=== PATIENT | female | born 1955 | race African-American/Black ===

== ENCOUNTER 2019-05-28 15:54 | Emergency (ER) | payer MEDICARE, MEDICAID ==
[~2019-05-28] VITALS: Ht 177.8 cm; Wt 77.0 kg
[2019-05-28 18:38] VITALS: BP 141/84
== END 2019-05-29 01:55 | disposition left against medical advice (07) ==
LOC: ER 15:54
DX: Z53.21 Procedure and treatment not carried out due to patient leaving prior to being seen by health care provider (principal)

== ENCOUNTER 2020-06-08 10:25 | Inpatient (IN) | payer OTHER, MEDICAID ==
[~2020-06-08] VITALS: Ht 165.1 cm; Wt 65.8 kg
[2020-06-08] MEDS ORDERED: SODIUM CHLORIDE 0.9% 1,000 ML IV ONE (11:15)
[2020-06-08 11:29] LABS: BASOPHILS % 0.9 % (0.0-2.0); EOSINOPHILS % 0.8 % (0.0-5.0); HEMATOCRIT. 40.7 % (36.0-48.0); HEMOGLOBIN. 13.4 g/dL (12.0-16.0); LYMPHOCYTES % 13.2 % (20.0-50.0); MEAN CORPUSCULAR HEMOGLOBIN 27.5 pg (28.0-32.0); MEAN CORPUSCULAR VOLUME 83.5 fL (81.0-99.0); MEAN PLATELET VOLUME 9.1 fl (7.4-10.4); MONOCYTES % 14.3 % (2.0-8.0); NEUTROPHILS % 70.8 % (40.0-76.0); PLATELET 247 x1000/uL (130-400); RED BLOOD CELL COUNT 4.87 mill/uL (4.2-5.4); RED CELL DISTRIBUTION WIDTH 16.5 % (11.6-14.6)
[2020-06-08 11:36] LABS: CHLORIDE 94 mEq/L (98-107)
[2020-06-08 11:45] LABS: CREATINE KINASE 85 IU/L (26-192)
[2020-06-08] MEDS ORDERED: VANCOMYCIN 1 G PREMIX 200 ML IV ONE (12:00)
[2020-06-08] MEDS ORDERED: LEVOFLOXACIN 750MG PREMIX 150 ML IV ONE (12:00)
[2020-06-08] MEDS ORDERED: MORPHINE SULFATE 2 MG/ML CPJ (NOT FOR IM USE) IV ONE (12:00)
[2020-06-08] MEDS ORDERED: DEXAMETHASONE 10 MG/ML VIAL IV ONE (12:15)
[2020-06-08 12:39] LABS: INR 1.1; PROTHROMBIN TIME 12.1 sec (9.6-11.0)
[2020-06-08 12:51] LABS: CLARITY URINE TURBID (CLEAR); COLOR URINE RED (YELLOW); KETONES URINE NEGATIVE (NEGATIVE); LEUKOCYTE ESTERASE URINE 3+ (NEGATIVE); NITRITE URINE NEGATIVE (NEGATIVE); OCCULT BLOOD URINE 3+ (NEGATIVE); PROTEIN URINE 3+ (NEGATIVE); SPECIFIC GRAVITY URINE 1.024 (1.005-1.030)
[2020-06-08] MEDS ORDERED: CEFTRIAXONE 1 G PREMIX 50 ML IV SCH (15:00)
[2020-06-08] MEDS ORDERED: ACETAMINOPHEN 650MG SUPP PR PRN (15:00)
[2020-06-08] MEDS ORDERED: GUAIFENESIN 200MG/10ML SUGAR FREE UDC PO PRN (15:00)
[2020-06-08] MEDS ORDERED: CLONIDINE 0.1MG TABLET PO PRN (15:00)
[2020-06-08] MEDS ORDERED: DOCUSATE SODIUM 100MG CAPSULE PO PRN (15:00)
[2020-06-08] MEDS ORDERED: ACETAMINOPHEN 325MG TABLET PO PRN (15:00)
[2020-06-08] MEDS ORDERED: MAGNESIUM/ALUMINUM HYDROXIDE/SIMETHICONE 30ML UDC PO PRN (15:00)
[2020-06-08] MEDS ORDERED: ONDANSETRON HCL 4MG/2ML INJ IV PRN (15:00)
[2020-06-08] MEDS ORDERED: DIPHENHYDRAMINE 50MG/ML VIAL IV PRN (15:00)
[2020-06-08] MEDS ORDERED: HYDROCODONE/ACETAMINOPHEN 5/325MG TABLET PO PRN (15:00)
[2020-06-08] MEDS ORDERED: NA PHOS,M-B/NA PHOS,DI-BA ENEMA 118ML PR PRN (15:00)
[2020-06-08] MEDS: MORPHINE SULFATE 2 MG/ML CPJ (NOT FOR IM USE) IV PRN (15:17)
[2020-06-08 16:30] VITALS: BP 130/85
[2020-06-08] MEDS ORDERED: ENOXAPARIN 40MG/0.4ML SYR SUBCUT SCH (17:00)
[2020-06-08] MEDS ORDERED: AZITHROMYCIN 500 MG in DEXT 5% WATER 250 ML IV SCH (17:00)
[2020-06-08 17:01] LABS: BG BASE EXCESS 2.3 mmol/L (-2.0-2.0); BG CARBOXYHEMOGLOBIN 0.7 % (0.5-1.5); BG DEOXYHEMOGLOBIN 6.7 % (0.0-5.0); BG FRACTION INSPIRED OXYGEN 21; BG HCO3 ACT 26.7 mmol/L (22.0-26.0); BG METHEMOGLOBIN 0.1 % (0.0-1.5); BG OXYGEN SATURATION 93.2 % (92.0-98.5); BG OXYHEMOGLOBIN 92.5 % (94.0-97.0); BG PCO2 40.6 mmHg (35.0-45.0); BG PH 7.436 (7.350-7.450); BG PO2 64.9 mmHg (75.0-100.0); BG SAMPLE SITE RIGHT BRACHIAL; BG TOTAL HEMOGLOBIN 12.8 g/dL (12.0-18.0); BG VENT MODE ROOM AIR
[2020-06-08] MEDS: FAMOTIDINE 20MG/2ML VIAL IV SCH (17:24)
[2020-06-08] MEDS ORDERED: ROSU20TA2 PO (17:33)
[2020-06-08] MEDS ORDERED: FAMO20TA8 PO (17:33)
[2020-06-08] MEDS ORDERED: POTA20TA82 PO (17:33)
[2020-06-08] MEDS ORDERED: FURO40TA5 PO (17:33)
[2020-06-08] MEDS ORDERED: ALBUTEROL 6.7GM HFA INHALER ORI SCH (18:00)
[2020-06-08 20:33] VITALS: BP 120/75
[2020-06-08 20:34] VITALS: BP 148/75
[2020-06-08] MEDS: AZITHROMYCIN 500 MG in DEXT 5% WATER 250 ML IV SCH (21:04)
[2020-06-08] MEDS ORDERED: IOHEXOL-300 100 ML BOTTLE ONE (22:58)
[2020-06-08] MEDS: CEFTRIAXONE 1,000 MG in DEXTROSE 5% WATER 50 ML IV SCH (23:38)
[2020-06-09 00:48] LABS: CREATINE KINASE 42 IU/L (26-192)
[2020-06-09 00:49] LABS: CREATINE KINASE MB FRACTION 1.8 ng/mL (0.5-3.6)
[2020-06-09 04:43] VITALS: BP 120/80
[2020-06-09 06:44] LABS: BASOPHILS % 0.2 % (0.0-2.0); HEMATOCRIT. 35.4 % (36.0-48.0); HEMOGLOBIN. 11.7 g/dL (12.0-16.0); LYMPHOCYTES % 17.9 % (20.0-50.0); MEAN PLATELET VOLUME 8.5 fl (7.4-10.4); MONOCYTES % 10.8 % (2.0-8.0); NEUTROPHILS % 71.1 % (40.0-76.0); PLATELET 190 x1000/uL (130-400); RED BLOOD CELL COUNT 4.17 mill/uL (4.2-5.4); RED CELL DISTRIBUTION WIDTH 16.7 % (11.6-14.6)
[2020-06-09 07:11] LABS: CHLORIDE 96 mEq/L (98-107)
[2020-06-09 07:32] LABS: LDL CHOLESTEROL 79 mg/dL (5-100)
[2020-06-09 07:33] LABS: CREATINE KINASE 39 IU/L (26-192); CREATINE KINASE MB FRACTION 1.8 ng/mL (0.5-3.6); T4 FREE 1.59 ng/dL (0.76-1.46)
[2020-06-09 07:34] LABS: HDL CHOLESTEROL 61 mg/dL (40-59)
[2020-06-09 07:59] VITALS: BP 118/77
[2020-06-09] MEDS: DEXAMETHASONE 10 MG/ML VIAL IV SCH (08:13)
[2020-06-09] MEDS: FAMOTIDINE 20MG/2ML VIAL IV SCH (08:13)
[2020-06-09 12:04] VITALS: BP 112/80
[2020-06-09] MEDS ORDERED: CEFTRIAXONE 1,000 MG in DEXTROSE 5% WATER 50 ML IV SCH (15:00)
[2020-06-09 16:09] VITALS: BP 111/72
[2020-06-09] MEDS: DEXT 5%/0.9% NACL 1,000 ML IV SCH (17:37)
[2020-06-09 20:00] VITALS: BP 117/84
[2020-06-09] MEDS: AZITHROMYCIN 500 MG TABLET PO SCH (21:00)
[2020-06-09] MEDS: MORPHINE SULFATE 2 MG/ML CPJ (NOT FOR IM USE) IV PRN (21:09)
[2020-06-09] MEDS: CEFTRIAXONE 1,000 MG in DEXTROSE 5% WATER 50 ML IV SCH (21:44)
[2020-06-09] MEDS: AZITHROMYCIN 500 MG in DEXT 5% WATER 250 ML IV SCH (22:21)
[2020-06-10] VITALS (7 sets, daily range): BP systolic 97–113; BP diastolic 57–71
[2020-06-10] MEDS ORDERED: SODIUM BICARBONATE 4% (2.4MEQ) 5ML VIAL IV ONE (08:32)
[2020-06-10] MEDS: DEXAMETHASONE 10 MG/ML VIAL IV SCH (09:00)
[2020-06-10] MEDS: FAMOTIDINE 20MG/2ML VIAL IV SCH (09:00)
[2020-06-10 11:48] LABS: BASOPHILS % 0.3 % (0.0-2.0); EOSINOPHILS % 1.7 % (0.0-5.0); HEMATOCRIT. 35.7 % (36.0-48.0); HEMOGLOBIN. 11.8 g/dL (12.0-16.0); LYMPHOCYTES % 8.7 % (20.0-50.0); MEAN CORPUSCULAR VOLUME 84.8 fL (81.0-99.0); MEAN PLATELET VOLUME 8.5 fl (7.4-10.4); MONOCYTES % 7.6 % (2.0-8.0); NEUTROPHILS % 81.7 % (40.0-76.0); PLATELET 140 x1000/uL (130-400); RED BLOOD CELL COUNT 4.21 mill/uL (4.2-5.4); RED CELL DISTRIBUTION WIDTH 16.6 % (11.6-14.6)
[2020-06-10 11:52] LABS: CHLORIDE 99 mEq/L (98-107)
[2020-06-10] MEDS: DEXT 5%/0.9% NACL 1,000 ML IV SCH (13:15)
[2020-06-10] MEDS ORDERED: POTASSIUM CHLORIDE 20MEQ TABLET SR PO NR (14:30)
[2020-06-10] MEDS: CEFTRIAXONE 1,000 MG in DEXTROSE 5% WATER 50 ML IV SCH (20:32)
[2020-06-10] MEDS: AZITHROMYCIN 500 MG TABLET PO SCH (20:32)
[2020-06-10] MEDS: MORPHINE SULFATE 2 MG/ML CPJ (NOT FOR IM USE) IV PRN (21:53)
[2020-06-10] MEDS: LORAZEPAM 0.5MG TABLET PO PRN (23:40)
[2020-06-11] MEDS: MORPHINE SULFATE 2 MG/ML CPJ (NOT FOR IM USE) IV PRN ×2 (03:31→11:37)
[2020-06-11 03:37] VITALS: BP 109/69
[2020-06-11 06:26] LABS: HEMATOCRIT 36.8 % (36.0-48.0); MEAN CORPUSCULAR HEMOGLOBIN 27.8 pg (28.0-32.0); MEAN CORPUSCULAR VOLUME 85.3 fL (81.0-99.0); PLATELET 132 x1000/uL (130-400); RED BLOOD CELL COUNT 4.32 mill/uL (4.2-5.4); RED CELL DISTRIBUTION WIDTH 17.3 % (11.6-14.6)
[2020-06-11 07:29] LABS: CHLORIDE 102 mEq/L (98-107)
[2020-06-11 08:00] VITALS: BP 104/67
[2020-06-11] MEDS: DEXAMETHASONE 10 MG/ML VIAL IV SCH (08:21)
[2020-06-11] MEDS: FAMOTIDINE 20MG/2ML VIAL IV SCH (08:21)
[2020-06-11] MEDS: DEXT 5%/0.9% NACL 1,000 ML IV SCH (08:27)
[2020-06-11 12:00] VITALS: BP 119/81
[2020-06-11 16:00] VITALS: BP 118/80
[2020-06-11 20:00] VITALS: BP 138/86
[2020-06-11] MEDS: LORAZEPAM 0.5MG TABLET PO PRN (20:24)
[2020-06-11] MEDS: AZITHROMYCIN 500 MG TABLET PO SCH (20:24)
[2020-06-11] MEDS: CEFTRIAXONE 1,000 MG in DEXTROSE 5% WATER 50 ML IV SCH (20:24)
[2020-06-11] MEDS: IPRATROPIUM/ALBUTEROL 0.5-3(2.5)MG/3ML NEB HHN SCH (21:18)
[2020-06-12] VITALS: BP 123/74
[2020-06-12] MEDS: IPRATROPIUM/ALBUTEROL 0.5-3(2.5)MG/3ML NEB HHN SCH ×4 (03:06→21:16)
[2020-06-12 04:00] VITALS: BP 107/59
[2020-06-12] MEDS: FAMOTIDINE 20MG/2ML VIAL IV SCH (08:13)
[2020-06-12] MEDS: DEXAMETHASONE 10 MG/ML VIAL IV SCH (08:13)
[2020-06-12 08:14] VITALS: BP 111/69
[2020-06-12 11:41] LABS: BG BASE EXCESS -3.2 mmol/L (-2.0-2.0); BG CARBOXYHEMOGLOBIN 0.3 % (0.5-1.5); BG DEOXYHEMOGLOBIN 4.6 % (0.0-5.0); BG FRACTION INSPIRED OXYGEN 21; BG HCO3 ACT 20.9 mmol/L (22.0-26.0); BG METHEMOGLOBIN 0.5 % (0.0-1.5); BG OXYGEN SATURATION 95.4 % (92.0-98.5); BG OXYHEMOGLOBIN 94.6 % (94.0-97.0); BG PCO2 34.4 mmHg (35.0-45.0); BG PH 7.402 (7.350-7.450); BG PO2 76.5 mmHg (75.0-100.0); BG SAMPLE SITE RIGHT RADIAL; BG TOTAL HEMOGLOBIN 11.9 g/dL (12.0-18.0); BG VENT MODE ROOM AIR
[2020-06-12 12:29] VITALS: BP 112/68
[2020-06-12 16:02] VITALS: BP 120/79
[2020-06-12 20:00] VITALS: BP 129/69
[2020-06-12] MEDS: CEFTRIAXONE 1,000 MG in DEXTROSE 5% WATER 50 ML IV SCH (21:00)
[2020-06-12] MEDS: LORAZEPAM 0.5MG TABLET PO PRN (21:53)
[2020-06-12] MEDS: AZITHROMYCIN 500 MG TABLET PO SCH (21:53)
[2020-06-13] MEDS: IPRATROPIUM/ALBUTEROL 0.5-3(2.5)MG/3ML NEB HHN SCH ×4 (02:23→21:33)
[2020-06-13 08:04] VITALS: BP 106/64
[2020-06-13] MEDS: FAMOTIDINE 20MG/2ML VIAL IV SCH (08:16)
[2020-06-13] MEDS: DEXAMETHASONE 10 MG/ML VIAL IV SCH (08:17)
[2020-06-13 11:51] VITALS: BP 115/72
[2020-06-13 20:00] VITALS: BP 119/78
[2020-06-13] MEDS: CEFTRIAXONE 1,000 MG in DEXTROSE 5% WATER 50 ML IV SCH (20:27)
[2020-06-14] VITALS: BP 111/66
[2020-06-14] MEDS: IPRATROPIUM/ALBUTEROL 0.5-3(2.5)MG/3ML NEB HHN SCH ×4 (01:12→20:20)
[2020-06-14 04:00] VITALS: BP 127/84
[2020-06-14 08:00] VITALS: BP 124/78
[2020-06-14] MEDS: FAMOTIDINE 20MG/2ML VIAL IV SCH (09:02)
[2020-06-14] MEDS: DEXAMETHASONE 10 MG/ML VIAL IV SCH (09:03)
[2020-06-14] MEDS ORDERED: LORAZEPAM 2MG/ML CPJ IV PRN (15:30)
[2020-06-14] MEDS ORDERED: HYDRALAZINE 20MG/ML VIAL IV PRN (15:30)
[2020-06-14] MEDS ORDERED: HYDROCODONE/ACETAMINOPHEN 5/325MG TABLET PO PRN (15:30)
[2020-06-14 16:10] LABS: HEMATOCRIT 34.5 % (36.0-48.0); HEMOGLOBIN 11.3 g/dL (12.0-16.0); MEAN CORPUSCULAR HEMOGLOBIN 27.9 pg (28.0-32.0); MEAN CORPUSCULAR VOLUME 85.3 fL (81.0-99.0); PLATELET 133 x1000/uL (130-400); RED BLOOD CELL COUNT 4.04 mill/uL (4.2-5.4); RED CELL DISTRIBUTION WIDTH 17.3 % (11.6-14.6)
[2020-06-14 16:21] LABS: CHLORIDE 103 mEq/L (98-107)
[2020-06-14 20:26] VITALS: BP 118/63
[2020-06-15] VITALS (7 sets, daily range): BP systolic 112–136; BP diastolic 60–94
[2020-06-15] MEDS: IPRATROPIUM/ALBUTEROL 0.5-3(2.5)MG/3ML NEB HHN SCH ×3 (01:09→13:02)
[2020-06-15] MEDS: FAMOTIDINE 20MG/2ML VIAL IV SCH (08:31)
[2020-06-15] MEDS ORDERED: DEXAMETHASONE 10 MG/ML VIAL IV SCH (09:00)
== END 2020-06-15 20:25 | disposition home health service (06) | DRG 871 ==
LOC: ER 10:34 → 7WST 12:57 → SUPCPDRO 14:53 → CANRESERV 15:39 → ENRESERV 15:39 → 6WST 06-09 10:07
PROVIDERS: ADMIT Internal Medicine; ATTEND Internal Medicine
PROC: 0W993ZX Drainage of Right Pleural Cavity, Percutaneous Approach, Diagnostic (ICD-10-PCS; principal; 2020-06-10)
DX: A41.9 Sepsis, unspecified organism (principal); J96.90 Respiratory failure, unspecified, unspecified whether with hypoxia or hypercapnia; C85.90 Non-Hodgkin lymphoma, unspecified, unspecified site; E87.1 Hypo-osmolality and hyponatremia; E87.2 Acidosis; N39.0 Urinary tract infection, site not specified; J91.8 Pleural effusion in other conditions classified elsewhere; J93.9 Pneumothorax, unspecified; E83.52 Hypercalcemia; R91.8 Other nonspecific abnormal finding of lung field; E87.70 Fluid overload, unspecified; M16.11 Unilateral primary osteoarthritis, right hip; Z96.642 Presence of left artificial hip joint; Z88.0 Allergy status to penicillin; Z91.19 Patient's noncompliance with other medical treatment and regimen; R00.0 Tachycardia, unspecified; R53.1 Weakness
CPT/HCPCS: 32555; 36415; 36600; 71045; 71275; 73521; 80048; 80053; 80061; 81003; 82040; 82375; 82550; 82553; 82805; 82962; 83605; 83615; 83735; 83880; 84145; 84439; 84443; 84478; 84484; 85025; 85027; 85379; 88108; 93005; 93970; 94618; 94640; 97116; 97162; 99291; J0456; J0696; J1100; J1200; J1650; J1956; J2270; J2405; J3370; J3490; J7030; J7042; J7060; Q9967; U0003

== ENCOUNTER 2020-07-04 15:01 | Emergency (ER) | payer MEDICAID, OTHER ==
[~2020-07-04] VITALS: Ht 165.1 cm; Wt 55.0 kg
[~2020-07-04 15:01] MED LIST: ALBU90AE INH; FAMO20TA8 PO; FURO40TA5 PO; IPRA3AMP9 NEB; LEVO500T89 MT; POTA20TA82 PO; ROSU20TA2 PO
[2020-07-04] MEDS ORDERED: FUROSEMIDE 20MG/2ML VIAL IVP ONE (16:00)
[2020-07-04 16:30] LABS: HEMATOCRIT. 40.5 % (36.0-48.0); HEMOGLOBIN. 13.2 g/dL (12.0-16.0); MEAN CORPUSCULAR HEMOGLOBIN 28.3 pg (28.0-32.0); MEAN CORPUSCULAR VOLUME 86.4 fL (81.0-99.0); MEAN PLATELET VOLUME 8.4 fl (7.4-10.4); PLATELET 112 x1000/uL (130-400); RED BLOOD CELL COUNT 4.69 mill/uL (4.2-5.4); RED CELL DISTRIBUTION WIDTH 19.4 % (11.6-14.6)
[2020-07-04 16:40] LABS: CHLORIDE 100 mEq/L (98-107)
[2020-07-04 17:05] LABS: PLATELET ESTIMATE DECREASED
[2020-07-04] MEDS ORDERED: ACETAMINOPHEN 325MG TABLET PO ONE (21:30)
[2020-07-04] MEDS ORDERED: HYDROCODONE/ACETAMINOPHEN 5/325MG TABLET PO ONE (23:15)
[2020-07-05 01:47] VITALS: BP 103/70
== END 2020-07-05 02:10 | disposition short-term general hospital (02) ==
LOC: ER 15:06 → CANBEDREQ 21:02 → ER 07-05 02:10
DX: I50.9 Heart failure, unspecified (principal); E87.5 Hyperkalemia; C85.90 Non-Hodgkin lymphoma, unspecified, unspecified site; D69.6 Thrombocytopenia, unspecified; R91.8 Other nonspecific abnormal finding of lung field; Z88.0 Allergy status to penicillin; Z88.5 Allergy status to narcotic agent; Z79.899 Other long term (current) drug therapy
CPT/HCPCS: 36415; 71045; 80053; 83880; 84484; 85025; 93005; 96374; 99285; J1940